=== PATIENT | male | born 1995 | race American Indian/Alaskan Native ===

== ENCOUNTER 2020-01-28 10:45 | Emergency (ER) | payer SELFPAY ==
[2020-01-28 11:02] VITALS: BP 124/77
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
--- NOTE | 2020-01-28 11:35 | XRay Report ---
LUMBAR SPINE 3 VIEWS INDICATION / CLINICAL INFORMATION: Back pain. COMPARISON: None available. FINDINGS: No fracture, subluxation or other significant abnormality. Signer Name: Franky Machuca MD Signed: 01/28/2020 11:31 AM Workstation Name: [id number]
[2020-01-28] MEDS ORDERED: IBUPROFEN 800 MG TAB PO ONE (11:59)
== END 2020-01-28 12:04 | disposition home or self-care (01) ==
LOC: ED 10:45
DX: M54.5 Low back pain (principal); G89.29 Other chronic pain; Z79.899 Other long term (current) drug therapy
CPT/HCPCS: 72100